=== PATIENT | female | born 1985 | race Caucasian/White ===

== ENCOUNTER 2018-01-31 11:59 | Inpatient (IN) | payer OTHER ==
[2018-01-31] VITALS (7 sets, daily range): BP systolic 106–141; BP diastolic 51–70
[~2018-01-31] VITALS: Ht 157.5 cm; Wt 74.5 kg
[~2018-01-31 11:59] MED LIST: COLACE100 MG PO; MOTRIN800 MG PO; PERCOCET 5/31 TABLET PO; PRENATAL TABLE1 EAC3 PO
[2018-01-31] MEDS ORDERED: IBUPROFEN800 MG PO (12:45)
[2018-01-31 13:06] LABS: BASOPHIL (%) 0.2 % (0-1); EOSINOPHIL (%) 0 % (0-5); HEMATOCRIT 36.9 % (36.0-46.0); HEMOGLOBIN 12.7 G/DL (11.9-15.5); IMMATURE GRANULOCYTE (%) 0.8 % (0.0-0.7); LYMPHOCYTE COUNT 0.9 K/uL (1.0-2.8); MCH 32.6 PG (29.0-34.0); MCHC 34.4 G/DL (30.0-36.0); MCV 94.6 FL (83-99); MONOCYTE (%) 2.9 % (3-12); MONOCYTE COUNT 0.5 K/uL (0-0.8); NEUTROPHIL (%) 90.1 % (45-76); PLATELET COUNT 199 K/uL (156-360); RBC DIS.WIDTH-CV 12.5 % (11.8-14.6); RBC DIS.WIDTH-SD 42.9 % (39-53); WHITE BLOOD COUNT 15.5 K/uL (4.1-10.2)
== END 2018-02-01 15:11 | disposition home or self-care (01) | DRG 775 ==
LOC: LDRP-OP 11:59 → 2WEST 12:03 → LDRP-OP 03-14 06:18
PROVIDERS: Midwife
DX: O70.1 Second degree perineal laceration during delivery (principal); Z37.0 Single live birth; Z3A.38 38 weeks gestation of pregnancy; M41.9 Scoliosis, unspecified; F41.9 Anxiety disorder, unspecified; O99.344 Other mental disorders complicating childbirth; O26.893 Other specified pregnancy related conditions, third trimester; Z87.891 Personal history of nicotine dependence; O12.04 Gestational edema, complicating childbirth
CPT/HCPCS: 85025; J2590